=== PATIENT | male | born 1990 | race American Indian/Alaskan Native ===

== ENCOUNTER 2018-09-29 04:39 | Emergency (ER) | payer MEDICAID, OTHER ==
[2018-09-29 04:47] VITALS: BP 145/92
--- NOTE | 2018-09-29 05:02 | EDM.PDOC ---
ED HPI GENERAL MEDICAL PROBLEM - General Chief Complaint: Upper Extremity Injury/Pain Stated Complaint: BROKE THUMB [id number] Time Seen by Provider: 09/29/18 05:01 Source of Information: Reports: Patient History Limitations: Reports: No Limitations - History of Present Illness INITIAL COMMENTS - FREE TEXT/NARRATIVE: fell onto it tonight Left Finger-Thumb Pain Score (Numeric/FACES): 6 - Related Data Allergies Allergy/AdvReac Type Severity Reaction Status Date / Time No Known Allergies Allergy Verified 09/29/18 04:47 Home Meds: Home Meds . [No Known Home Meds] 04/28/16 [History] Past Medical History - Past Health History Medical/Surgical History: Denies Medical/Surgical History Social & Family History - Family History Family Medical History: Noncontributory - Tobacco Use Smoking Status *Q: Current Every Day Smoker Years of Tobacco use: 20 Packs/Tins Daily: 0.9 Second Hand Smoke Exposure: Yes - Caffeine Use Caffeine Use: Reports: None - Recreational Drug Use Recreational Drug Use: No Review of Systems - Review of Systems Review Of Systems: ROS reveals no pertinent complaints other than HPI. ED EXAM, GENERAL - Physical Exam Exam: See Below Exam Limited By: No Limitations General Appearance: Alert, WD/WN, Mild Distress, Other (discomfort) Ears: Hearing Grossly Normal Throat/Mouth: Normal Voice, No Airway Compromise Head: Atraumatic Neck: Non-Tender, Full Range of Motion Respiratory/Chest: No Respiratory Distress Cardiovascular: Regular Rate, Rhythm GI/Abdominal: Soft, Non-Tender Extremities: Other (left thumb swollen tender R/P, NV wnl) Neurological: Alert, Oriented, Normal Cognition, Normal Gait, No Motor/Sensory Deficits Psychiatric: Normal Affect, Normal Mood Skin Exam: Warm, Dry, Normal Color Lymphatic: No Adenopathy Course - Vital Signs Last Recorded V/S: Last Vital Signs Temp 37.9 C 09/29/18 04:42 Pulse 98 09/29/18 04:42 Resp 18 09/29/18 04:42 BP 145/92 H 09/29/18 04:42 Pulse Ox 96 09/29/18 04:42 - Orders/Labs/Meds Orders: Active Orders 24 hr Category Date Time Status Fingers Thumb Lt FA [CR] Urgent Exams 09/29/18 05:00 Taken Departure - Departure Time of Disposition: 05:40 Disposition: Home, Self-Care 01 Condition: Good Clinical Impression: Left thumb sprain Qualifiers: Encounter type: initial encounter Sprain of finger site: metacarpophalangeal joint Qualified Code(s): S63.642A - Sprain of metacarpophalangeal joint of left thumb, initial encounter - Discharge Information Instructions: Thumb Sprain Forms: ED Department Discharge Additional Instructions: 1) ice to swelling 2) take tylenol or motrin for pain 3) follow up at clinic - My Orders Last 24 Hours: My Active Orders 09/29/18 05:00 Fingers Thumb Lt FA [CR] Urgent - Assessment/Plan Last 24 Hours: My Active Orders 09/29/18 05:00 Fingers Thumb Lt FA [CR] Urgent
== END 2018-09-29 05:45 | disposition home or self-care (01) ==
LOC: DL.ED 04:39
DX: S63.642A Sprain of metacarpophalangeal joint of left thumb, initial encounter (principal); F17.210 Nicotine dependence, cigarettes, uncomplicated; W18.39XA Other fall on same level, initial encounter
CPT/HCPCS: 73140-FA; 99283-25

== ENCOUNTER 2019-06-27 00:46 | Emergency (ER) | payer SELFPAY ==
[2019-06-27 00:55] VITALS: BP 129/84; PULSE 119
[2019-06-27] MEDS ORDERED: Sodium Chloride 0.9% 10 ML Syringe FLUSH PRN (00:55)
[2019-06-27] MEDS ORDERED: Ondansetron 4 MG/2 ML SDV IV ONE (01:00)
--- NOTE | 2019-06-27 01:04 | EDM.PDOC ---
ED HPI GENERAL MEDICAL PROBLEM - General Chief Complaint: Drug or Alcohol Abuse Stated Complaint: AMBULANCE Time Seen by Provider: 06/27/19 00:50 Source of Information: Reports: Patient, EMS History Limitations: Reports: Altered Mental Status - History of Present Illness INITIAL COMMENTS - FREE TEXT/NARRATIVE: patient comes emergency deferment today by ambulance from home after reported opiate overdose. The patient was found unresponsive and apneic at home by family 911 was summoned. Upon EMS arrival the patient was apneic but had a strong pulse. patient was given 2 mg intranasal Narcan with some assisted ventilation for the next 5 minutes and the patient alerted. He told the ambulance that he was injecting his normal "shit" that he takes to get high on a regular basis. This was not a suicidal attempt and was for recreational usage. on arrival the patient complains of some nausea and being very cold and chills. He is nauseated. He has no chest pain shortness of breath or difficulty breathing. He really does not recall the instances of tonight. Reports that he injected methamphetamine as he typically would tonight. There were syringes and other drug paraphernalia at the house. PD was on the scene. - Related Data Allergies Allergy/AdvReac Type Severity Reaction Status Date / Time No Known Allergies Allergy Verified 06/27/19 00:53 Home Meds: Home Meds . [No Known Home Meds] 04/28/16 [History] Past Medical History - Past Health History Medical/Surgical History: Denies Medical/Surgical History Social & Family History - Family History Family Medical History: Noncontributory - Caffeine Use Caffeine Use: Reports: None ED ROS GENERAL - Review of Systems Review Of Systems: Comprehensive ROS is negative, except as noted in HPI. - Physical Exam Exam: See Below Exam Limited By: Intoxication General Appearance: Alert, WD/WN Eye Exam: Bilateral Eye: EOMI, Normal Inspection, PERRL (PINPOINT bilaterally) Ears: Normal External Exam, Normal Canal, Normal TMs Nose: Normal Inspection, Normal Mucosa Throat/Mouth: Normal Inspection, Normal Lips, Normal Teeth, Normal Oropharynx Head Exam: Atraumatic, Normocephalic Neck: Normal Inspection, Supple, Non-Tender Respiratory/Chest: No Respiratory Distress, Lungs Clear, Normal Breath Sounds, No Accessory Muscle Use Cardiovascular: Normal Peripheral Pulses, Regular Rate, Rhythm GI/Abdominal: Normal Bowel Sounds, Soft, Non-Tender, No Abnormal Bruit Neuro Exam (Abbreviated): Alert, Oriented, CN II-XII Intact, Normal Cognition, Normal Reflexes, No Motor/Sensory Deficits Back Exam: Normal Inspection Extremities: Normal Inspection, Normal Range of Motion, Non-Tender, Normal Capillary Refill Psychiatric: Depressed Mood Skin Exam: Cool, Diaphoretic, Pallor, Tattoo(s), Other (what appears to be puncture wound to the left AC from injection none infectious appearing. ) EKG INTERPRETATION EKG Date: 06/27/19 Time: 00:54 Rhythm: NSR Rate (Beats/Min): 115 P-Wave: Present QRS: Normal ST-T: Normal QT: Normal Course - Vital Signs Last Recorded V/S: Last Vital Signs Temp 35.7 C L 06/27/19 00:54 Pulse 119 H 06/27/19 00:54 Resp 16 06/27/19 00:54 BP 129/84 06/27/19 00:54 Pulse Ox 99 06/27/19 00:54 - Orders/Labs/Meds Orders: Active Orders 24 hr Category Date Time Status EKG 12 Lead [EKG Documentation Completion] [RC] URGENT Care 06/27/19 00:54 Active Peripheral IV Care [RC] . DIRECTED Care 06/27/19 00:55 Active Sodium Chloride 0.9% [Saline Flush] Med 06/27/19 00:55 Active 10 ml FLUSH ASDIRECTED PRN Peripheral IV Insertion Adult [OM.PC] Stat Oth 06/27/19 00:54 Ordered Medication Orders Sodium Chloride (Saline Flush) 10 ml FLUSH ASDIRECTED PRN PRN Reason: Keep Vein Open Last Admin: 06/27/19 01:03 Dose: 10 ml Labs: Laboratory Tests 06/27/19 06/27/19 06/27/19 Range/Units 00:55 00:55 01:16 WBC 21.0 H (5.0-10.0) 10^3/uL RBC 4.95 (4.6-6.2) 10^6/uL Hgb 15.7 (14.0-18.0) g/dL Hct 46.7 (40.0-54.0) % MCV 94.3 (80-100) fL MCH 31.7 (27.0-34.0) pg MCHC 33.6 (33.0-35.0) g/dL Plt Count 216 (150-450) 10^3/uL Neut % (Auto) 90.8 H (42.2-75.2) % Lymph % (Auto) 3.4 L (20.5-50.1) % [place] % (Auto) 5.8 (2-8) % Eos % (Auto) 0.0 L (1.0-3.0) % Baso % (Auto) 0.0 (0.0-1.0) % Add Manual Diff Yes Neutrophils % (Manual) 83 H (42-75) % Band Neutrophils % 10 % Lymphocytes % (Manual) 3 L (20-50) % Monocytes % (Manual) 4 (2-8) % Sodium (135-145) mmol/L Potassium (3.6-5.0) mmol/L Chloride (101-111) mmol/L Carbon Dioxide (21.0-31.0) mmol/L Anion Gap BUN (7-18) mg/dL Creatinine (0.6-1.3) mg/dL Est Cr Clr Drug Dosing mL/min Estimated GFR (MDRD) BUN/Creatinine Ratio Glucose (74-105) mg/dL Calcium (8.4-10.2) mg/dl Total Bilirubin (0.2-1.0) mg/dL AST (10-42) IU/L ALT (10-60) IU/L Alkaline Phosphatase (42-121) IU/L Troponin I (0.00-0.02) ng/ml Total Protein (6.7-8.2) g/dl Albumin (3.2-5.5) g/dl Globulin Albumin/Globulin Ratio Urine Color Yellow (YELLOW) Urine Appearance Slightly cloudy (CLEAR) Urine pH 6.0 (5.0-9.0) Ur Specific [place] >= 1.030 (1.005-1.030) Urine Protein 100 H (NEGATIVE) Urine Glucose (UA) 100 H (NEGATIVE) Urine Ketones Negative (NEGATIVE) Urine Occult Blood Trace-intact H (NEGATIVE) Urine Nitrite Negative (NEGATIVE) Urine Bilirubin Negative (NEGATIVE) Urine Urobilinogen 1.0 (0.2-1.0) mg/dL Ur Leukocyte Esterase Negative (NEGATIVE) U Hyaline Cast (Auto) Occasional Urine RBC 5-10 H /HPF Urine WBC 0-5 (0-5/HPF) /HPF Ur Epithelial Cells Occasional (NOT SEEN) /HPF Amorphous Sediment Moderate (NOT SEEN) /HPF Urine Bacteria Few (0-FEW/HPF) /HPF Urine Mucus Few H (NOT SEEN) /LPF Salicylates mg/dL Urine Opiates Screen Negative (NEGATIVE) Ur Oxycodone Screen Negative (NEGATIVE) Urine Methadone Screen Negative (NEGATIVE) Acetaminophen ug/mL Ur Barbiturates Screen Negative (NEGATIVE) U Tricyclic Antidepress Negative (NEGATIVE) Ur Phencyclidine Scrn Negative (NEGATIVE) Ur Amphetamine Screen Positive H (NEGATIVE) U Methamphetamines Scrn Positive H (NEGATIVE) Urine MDMA Screen Positive H (NEGATIVE) U Benzodiazepines Scrn Negative (NEGATIVE) Urine Cocaine Screen Negative (NEGATIVE) U Marijuana (THC) Screen Negative (NEGATIVE) Ethyl Alcohol mg/dL 06/27/19 06/27/19 06/27/19 Range/Units 01:16 04:51 04:51 WBC 16.6 H (5.0-10.0) 10^3/uL RBC 4.24 L (4.6-6.2) 10^6/uL Hgb 13.4 L D (14.0-18.0) g/dL Hct 40.2 (40.0-54.0) % MCV 94.8 (80-100) fL MCH 31.6 (27.0-34.0) pg MCHC 33.3 (33.0-35.0) g/dL Plt Count 206 (150-450) 10^3/uL Neut % (Auto) 84.0 H (42.2-75.2) % Lymph % (Auto) 8.9 L (20.5-50.1) % [place] % (Auto) 6.9 (2-8) % Eos % (Auto) 0.1 L (1.0-3.0) % Baso % (Auto) 0.1 (0.0-1.0) % Add Manual Diff Neutrophils % (Manual) (42-75) % Band Neutrophils % % Lymphocytes % (Manual) (20-50) % Monocytes % (Manual) (2-8) % Sodium 139 (135-145) mmol/L Potassium 3.9 (3.6-5.0) mmol/L Chloride 103 (101-111) mmol/L Carbon Dioxide 28.0 (21.0-31.0) mmol/L Anion Gap 11.9 BUN 24 H (7-18) mg/dL Creatinine 1.3 (0.6-1.3) mg/dL Est Cr Clr Drug Dosing 90.75 mL/min Estimated GFR (MDRD) > 60 BUN/Creatinine Ratio 18.46 Glucose 110 H (74-105) mg/dL Calcium 8.7 (8.4-10.2) mg/dl Total Bilirubin 0.7 (0.2-1.0) mg/dL AST 32 (10-42) IU/L ALT 49 (10-60) IU/L Alkaline Phosphatase 78 (42-121) IU/L Troponin I 0.04 H* 0.03 H* (0.00-0.02) ng/ml Total Protein 8.0 (6.7-8.2) g/dl Albumin 4.4 (3.2-5.5) g/dl Globulin 3.6 Albumin/Globulin Ratio 1.22 Urine Color (YELLOW) Urine Appearance (CLEAR) Urine pH (5.0-9.0) Ur Specific [place] (1.005-1.030) Urine Protein (NEGATIVE) Urine Glucose (UA) (NEGATIVE) Urine Ketones (NEGATIVE) Urine Occult Blood (NEGATIVE) Urine Nitrite (NEGATIVE) Urine Bilirubin (NEGATIVE) Urine Urobilinogen (0.2-1.0) mg/dL Ur Leukocyte Esterase (NEGATIVE) U Hyaline Cast (Auto) Urine RBC /HPF Urine WBC (0-5/HPF) /HPF Ur Epithelial Cells (NOT SEEN) /HPF Amorphous Sediment (NOT SEEN) /HPF Urine Bacteria (0-FEW/HPF) /HPF Urine Mucus (NOT SEEN) /LPF Salicylates < 4.0 mg/dL Urine Opiates Screen (NEGATIVE) Ur Oxycodone Screen (NEGATIVE) Urine Methadone Screen (NEGATIVE) Acetaminophen < 10.0 ug/mL Ur Barbiturates Screen (NEGATIVE) U Tricyclic Antidepress (NEGATIVE) Ur Phencyclidine Scrn (NEGATIVE) Ur Amphetamine Screen (NEGATIVE) U Methamphetamines Scrn (NEGATIVE) Urine MDMA Screen (NEGATIVE) U Benzodiazepines Scrn (NEGATIVE) Urine Cocaine Screen (NEGATIVE) U Marijuana (THC) Screen (NEGATIVE) Ethyl Alcohol 6 mg/dL Meds: Medications Generic Name Dose Route Start Last Admin Trade Name Freq PRN Reason Stop Dose Admin Sodium Chloride 10 ml 06/27/19 00:55 06/27/19 01:03 Saline Flush FLUSH 10 ml ASDIRECTED PRN Administration Keep Vein Open Discontinued Medications Generic Name Dose Route Start Last Admin Trade Name Hung PRN Reason Stop Dose Admin Lactated Ringer's 1,000 mls @ 999 mls/hr 06/27/19 01:57 06/27/19 02:03 Ringers, Lactated IV 06/27/19 02:57 999 mls/hr ONETIME ONE Administration Lactated Ringer's 1,000 mls @ 500 mls/hr 06/27/19 02:58 06/27/19 03:05 Ringers, Lactated IV 06/27/19 04:57 500 mls/hr ONETIME ONE Administration Ondansetron HCl 4 mg 06/27/19 01:00 06/27/19 01:03 Zofran IV 06/27/19 01:01 4 mg ONETIME ONE Administration - Re-Assessments/Exams Free Text/Narrative Re-Assessment/Exam: 06/27/19 06:41 the patient was hydrated with fluid and prophylactic Zofran for nausea. He was monitored over the next 6 hours or so in the emergency department. He had no vomiting. He alerted shortly after he was here and maintain his airway without any respiratory compromise or depression. He required no further dosing of Narcan. He does admit to using heroin tonight which is not used for quite some time. I talked with him about the very severe dier situation that he was in and could of . He is not interested in support for his substance abuse at this time. His troponin is most likely due to cardiac strain from the period of respiratory arrest/distress EKG okay and no CP. 06/27/19 06:45 Pt will be discharged home with his family. Departure - Departure Time of Disposition: 06:30 Disposition: Home, Self-Care 01 Clinical Impression: Opiate or related narcotic overdose Qualifiers: Encounter type: initial encounter Injury intent: accidental or unintentional Qualified Code(s): T40.601A - Poisoning by unspecified narcotics, accidental ( unintentional), initial encounter - Discharge Information Instructions: Accidental Overdose, Opioid Overdose Referrals: PCP,Unobtain [Primary Care Provider] - Forms: ED Department Discharge Additional Instructions: DO NOT USE RECREATIONAL DRUGS, they can kill you like what almost happened tonight. From your drug overdose you stopped breathing luckily the Paramedics were able to save your life. See human service center for assistance with substance abuse. Return to the ED if new or worsening symptoms. Follow up with PCP for assistance with your substance abuse use. Sepsis Event Note - Evaluation Sepsis Screening Result: No Definite Risk - Focused Exam Vital Signs: Vital Signs Temp Pulse Resp BP Pulse Ox 06/27/19 00:54 35.7 C L 119 H 16 129/84 99 Date Exam was Performed: 06/27/19 Time Exam was Performed: 06:45 - My Orders Last 24 Hours: My Active Orders 06/27/19 00:54 EKG 12 Lead [EKG Documentation Completion] [RC] URGENT Peripheral IV Insertion Adult [OM.PC] Stat 06/27/19 00:55 Peripheral IV Care [RC] . DIRECTED Sodium Chloride 0.9% [Saline Flush] 10 ml FLUSH ASDIRECTED PRN - Assessment/Plan Last 24 Hours: My Active Orders 06/27/19 00:54 EKG 12 Lead [EKG Documentation Completion] [RC] URGENT Peripheral IV Insertion Adult [OM.PC] Stat 06/27/19 00:55 Peripheral IV Care [RC] . DIRECTED Sodium Chloride 0.9% [Saline Flush] 10 ml FLUSH ASDIRECTED PRN Assessment:: Opiate overdose with respiratory arrest, resolved with narcan by EMS. Substance use disorder. Plan: DO NOT USE RECREATIONAL DRUGS, they can kill you like what almost happened tonight. From your drug overdose you stopped breathing luckily the Paramedics were able to save your life. See human service center for assistance with substance abuse. Return to the ED if new or worsening symptoms. Follow up with PCP for assistance with your substance abuse use.
[2019-06-27 01:42] LABS: ANION GAP 11.9; CHLORIDE,CL 103 mmol/L (101-111); SODIUM,NA 139 mmol/L (135-145)
[2019-06-27] MEDS ORDERED: Lactated Ringers 1,000 ML IV ONE ×2 (01:57→02:58)
[2019-06-27] MEDS ORDERED: Lactated Ringers 1,000 ML IV SCH (02:00)
[2019-06-27 02:09] LABS: ACETAMINOPHEN < 10.0 ug/mL
== END 2019-06-27 08:24 | disposition home or self-care (01) ==
LOC: DL.ED 00:46
DX: T40.1X1A Poisoning by heroin, accidental (unintentional), initial encounter (principal)
CPT/HCPCS: 36415; 80053; 80305; 80307; 81001; 84484; 85025; 93005; 93010; 96361; 96374; 99284; J2405; J7120

== ENCOUNTER 2022-07-31 00:38 | Emergency (ER) | payer OTHER ==
[2022-07-31 00:57] VITALS: BP 133/105; PULSE 98
== END 2022-07-31 01:02 ==
LOC: DL.ED 00:38
DX: S01.81XA Laceration without foreign body of other part of head, initial encounter (principal); Z72.0 Tobacco use; W25.XXXA Contact with sharp glass, initial encounter; Y92.410 Unspecified street and highway as the place of occurrence of the external cause
CPT/HCPCS: 12011; 99282; 99284